=== PATIENT | female | born 2000 | race Caucasian/White ===

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

== ENCOUNTER 2019-01-10 17:40 | Emergency (ER) | payer MEDICAID ==
[2019-01-10] MEDS ORDERED: OXYCODONE/APAP 5/325 TAB PO ONE (19:08)
[2019-01-10] MEDS ORDERED: SULFAMETHOX/TMP 800/160 MG 1 TAB PO ONE (19:08)
[2019-01-10] MEDS ORDERED: SULFAMET/TMP DS PREPACK#2 BTL TAKEHOME ONE (19:09)
[2019-01-10] MEDS ORDERED: OXYCODONE/APAP 5/325MG PREPACK#4 BTL TAKEHOME ONE (19:09)
--- NOTE | 2019-01-10 19:13 | EDPHY ---
H & P Stated Complaint: L breast pain x 2 days -recent breast U/S & started on clinda- [facility] Time Seen by Provider: 01/10/19 17:47 HPI/ROS: CHIEF COMPLAINT: Left breast pain HISTORY OF PRESENT ILLNESS: This is a 18-year-old female with complex medical history presents with left breast pain. Her medical history includes a history of idiopathic intracranial hypertension (recently diagnosed during hospitalization at this hospital), asthma, GERD, hypertension, migraines, anxiety and depression. She reports chronic kidney disease also. She states that she has had Clostridium difficile in the past. Latesha's visit has to do with left breast pain. She developed pain in the left breast, inner upper quadrant, about a week ago. She was seen by her information technology intern and started on clindamycin with the thought that she might have a breast abscess. She underwent a breast ultrasound at [facility] and this was reportedly normal. Today she notes increasing pain with the pain extending throughout the entire left breast. She has also noted some right breast discomfort. She states that she had some drainage that appeared to be purulent from the most tender area. She has also had some bleeding from that area. She has not had fever. She has not otherwise ill. At 4:00 p.m. She took 650 mg of Tylenol in 200 mg of Advil. She has never been . REVIEW OF SYSTEMS: A ten system review of systems was performed and is negative with the exception of the items mentioned in the HPI. Past medical history: 1. Idiopathic intracranial hypertension 2. GERD 3. Asthma 4. Chronic kidney disease 5. Hypertension 6. Headaches 7. Anxiety and depression Past surgical history: Noncontributory/none Family history: Positive for hypertension Social history: She does not use tobacco or alcohol. She lives with her mother and 2 brothers. Her her mother accompanies her today. General Appearance: Alert. Vital signs reviewed. Blood pressure 126/75. Eyes: Pupils equal and round, no conjunctival injection, no discharge. Anicteric. ENT, Mouth: Mucous membranes are moist, no oropharyngeal erythema or edema. Neck: No lymphadenopathy, supple. Breasts: In the medial upper quadrant of her left breast there is an area that looks almost like "spider veins" with a few small punctate scabs or areas that appear to have had a tiny amount of bleeding. I do not appreciate an underlying mass. Breasts do not feel for more engorged. There is no skin warmth, induration, or erythema, no bruising, no vesicles or papules. The right breast exam is normal. She does report tenderness throughout both breasts when they are examined. No nipple discharge. Lymph: No axillary lymphadenopathy appreciated at the time of my exam. Respiratory: Lungs are clear to auscultation; no wheezes, rales, or rhonchi. Cardiovascular: Regular rate and rhythm; no murmur, rub, or gallop. Gastrointestinal: Abdomen is soft and nontender. Skin: Warm and dry, no rashes on exposed skin, normal color. Neurological: Alert and oriented. Moving all four extremities easily and equally. Psychiatric: Normal affect. - Personal History LMP (Females 10-55): Unknown Tetanus Vaccine Date: 2009 - Medical/Surgical History Hx Asthma: Yes Hx Chronic Respiratory Disease: No Hx Diabetes: No Hx Cardiac Disease: No Hx Renal Disease: Yes Hx Cirrhosis: No Hx Alcoholism: No Hx HIV/AIDS: No Hx Splenectomy or Spleen Trauma: No Other PMH: asthma, alopecia, Major depressive disorder, PTSD, Insomnia, Anxiety , IUD, ovarian cyst, fibromyalgia, IBS, enlarged liver, baseline tachycardia MIGRAINES, HTN, chronic kidney diease - Social History Smoking Status: Never smoked Constitutional: Initial Vital Signs Temperature (C) 36.7 C 01/10/19 17:54 Heart Rate 78 01/10/19 17:54 Respiratory Rate 16 01/10/19 17:54 Blood Pressure 126/75 H 01/10/19 17:54 O2 Sat (%) 97 01/10/19 17:54 O2 Delivery Mode Room Air Allergies/Adverse Reactions: guaifenesin [From Mucinex] Allergy (Severe, Verified 12/09/18 21:33) Hives Penicillins Allergy (Severe, Verified 12/09/18 21:33) Hives shellfish derived Allergy (Severe, Verified 12/09/18 21:33) Anaphylaxis metronidazole [From Flagyl] Allergy (Verified 12/09/18 21:33) Hives miconazole [From Monistat 7] Allergy (Verified 12/09/18 21:33) Hives vancomycin Allergy (Verified 12/09/18 21:33) Hives Home Medications: Medication Instructions Recorded diphenhydrAMINE [Benadryl 25 MG 50 mg PO HS 05/03/17 (*)] DULoxetine [Cymbalta 60 MG (*)] 60 mg PO HS 01/08/18 Ondansetron Odt [Zofran Odt 4 mg 4 mg PO Q4 PRN #20 tab 01/08/18 (*)] Rizatriptan Benzoate [Maxalt] 10 mg PO DAILY PRN 01/11/18 Dicyclomine [Bentyl 20 MG (*)] 20 mg PO BID 02/07/18 EPINEPHrine KIT [Epipen Kit] 0.3 mg IM ONCE PRN 02/07/18 Nebivolol HCl [Bystolic] 2.5 mg PO DAILY 02/07/18 traZODone [traZODONE 100MG (*)] 100 mg PO HS 02/07/18 busPIRone [Buspar (*)] 10 mg PO BID 03/24/18 Beclomethasone Qvar 80 [Qvar 80 2 inh IH DAILY 11/06/18 [place]hal[place] (*)] Ipratropium/Albuterol [Duoneb (*)] 1 inh IH DAILY PRN 11/06/18 Pantoprazole Sodium [Protonix 40mg 40 mg PO DAILY 11/06/18 (*)] Fluticasone Nasal [Flonase Nasal 2 sprays NASAL DAILY PRN 12/04/18 [place]] Divalproex ER [Depakote ER 250 MG 250 mg PO BID 12/10/18 (*)] Topiramate [Topamax 25MG (*)] 50 mg PO HS 12/10/18 Benzonatate [Tessalon Pearles (RX)] 100 mg PO TID PRN #30 cap 12/11/18 Clindamycin 01/10/19 Sulfamethox/Tmp 800/160 mg 1 tab PO BID #14 tab 01/10/19 [Bactrim Ds] oxyCODONE/APAP 5/325 [Percocet 1 - 2 tab PO Q4H PRN #5 tab 01/10/19 5/325 (RX)] Medical Decision Making ED Course/Re-evaluation: I do not find evidence of a breast abscess. There is an area in the upper medial left breast that has a few scattered regions that appear to have had some bleeding the towed total area that is involved with this is approximately 2 cm x 2 cm. Vasculature appears more prominent underneath the skin at this site. There is no skin warmth or erythema. No nipple discharge. As I explained to the patient and her mother, I do not know what is causing her breast discomfort. I spoke with the on-call information technology intern who suggests changing her antibiotic from clindamycin to Bactrim. I am also providing pain medication --she received 1 Percocet in the emergency department and was given a small quantity to use at home. She will continue with warm compresses. She has an appointment with a breast specialist in [place] on January 17. She will also be following up with her information technology intern and with her primary care physician. At this point in time I have no reason to suspect carcinoma. I do not appreciate a breast cyst but she does have large dense breasts and this would be difficult to determine with physical examination. - Data Points Medications Given: Discontinued Medications Oxycodone/Acetaminophen (Percocet 5/325) 1 tab PO EDNOW ONE Stop: 01/10/19 19:09 Last Admin: 01/10/19 19:15 Dose: 1 tab Oxycodone/Acetaminophen (Percocet 5/325mg Prepack#4) 1 btl TAKEHOME EDNOW ONE Stop: 01/10/19 19:10 Last Admin: 01/10/19 19:15 Dose: 1 btl Trimethoprim/Sulfamethoxazole (Bactrim Ds) 1 ea PO EDNOW ONE PRN Reason: Protocol Stop: 01/10/19 19:09 Last Admin: 01/10/19 19:15 Dose: 1 ea Trimethoprim/Sulfamethoxazole (Bactrim Ds Prepack#2) 1 btl TAKEHOME EDNOW ONE Stop: 01/10/19 19:10 Last Admin: 01/10/19 19:15 Dose: 1 btl Departure - Departure Disposition: Home, Routine, Self-Care Clinical Impression: Breast pain Condition: Good Instructions: Sulfamethoxazole/Trimethoprim (By mouth), Oxycodone/ Acetaminophen (By mouth), Abscess (ED) Additional Instructions: I am giving information about an abscess although I do not appreciate an abscess on your examination. I am not certain what is causing you to have pain in your left breast. After speaking with Dr. Mcdaniel, I will change her antibiotic from clindamycin to Bactrim. The Bactrim his to be taken twice daily. I am giving you a small quantity of Percocet to use for pain. Each Percocet contains 325 mg of Tylenol. I recommend warm compresses also. You gynecology office will contact you tomorrow to see how you are doing. Adult Pain & Fever Control: We recommend Acetaminophen (Tylenol) and Ibuprofen (Motrin,Advil) for pain and fever control. When fever is high or pain severe, both drugs can be used at the same time, but at different intervals. Please note the time differences. Your dose is: Acetaminophen [650]mg every 4 to 6 hours Ibuprofen [400]mg every [8] hours with food OR Note: do not take Acetaminophen with Hydrocodone (Vicodin, Lortab) or Oycodone (Percocet). These medications also contain Acetaminophen. No more than 3000mg of Acetaminophen should be taken in 24 hours (for an adult). Referrals: [facility] [Other] - As per Instructions Stand Alone Forms: Narcotic Guidelines Prescriptions: oxyCODONE/APAP 5/325 [Percocet 5/325 (RX)] 1 - 2 tab PO Q4H PRN #5 tab PRN Reason: Pain, Severe Sulfamethox/Tmp 800/160 mg [Bactrim Ds] 1 tab PO BID #14 tab
[2019-01-10 19:34] VITALS: BP 125/75
== END 2019-01-10 19:33 | disposition home or self-care (01) ==
DX: N64.4 Mastodynia (principal)

== ENCOUNTER 2019-03-01 13:29 | Emergency (ER) | payer MEDICAID | END 2019-03-01 16:00 | disposition home or self-care (01) | LOC: CED 13:29 ==

== ENCOUNTER 2019-03-02 17:57 | Emergency (ER) | payer MEDICAID | END 2019-03-02 20:52 | disposition home or self-care (01) ==

== ENCOUNTER 2019-03-09 15:38 | Emergency (ER) | payer MEDICAID | END 2019-03-09 21:44 | disposition home or self-care (01) ==

== ENCOUNTER 2019-03-14 19:32 | Emergency (ER) | payer MEDICAID | END 2019-03-14 22:40 | disposition home or self-care (01) | LOC: CED 19:32 ==